=== PATIENT | male | born 1995 | race African-American/Black ===

== ENCOUNTER 2019-07-18 00:26 | Emergency (ER) | payer SELFPAY ==
[2019-07-18 01:49] LABS: Bilirubin Negative (Negative); Blood, Urine Negative (Negative); Clarity Clear (Clear); Glucose, Urine (Dipstick) Normal (Negative); Leukocyte Negative Leu/uL (Negative); Nitrite Negative (Negative); Protein, Urine (Dipstick) 20 mg/dL (Neg-Trace); Urobilinogen Normal mg/dL (Less than 2)
--- NOTE | 2019-07-18 10:13 | ULT ---
PRELIMINARY REPORT/[facility]/AFTER HOURS PROCEDURE SCROTUM ULTRASOUND: CLINICAL HISTORY: HX: Rt testicular pain. See notes on last image. Thanks. TECHNIQUE: Real-time ultrasound of the scrotum with color Doppler and image documentation. COMPARISON: None provided. FINDINGS: RIGHT TESTICLE: The right testicle measures about 4.3 x 2.1 x 2.7 cm. No mass. Normal Doppler flow. LEFT TESTICLE: The left testicle measures about 4.1 x 2.2 x 2.8 cm. No mass. Normal Doppler flow. EPIDIDYMIDES: Unremarkable. SCROTUM: There is a small bilateral hydrocele. IMPRESSION: Small bilateral hydrocele. ELECTRONICALLY SIGNED BY: Estella Wall MD Jul 18, 2019 2:33:03 AM [employer] This report is intended for review by the ordering physician only, in accordance of law. If you recei ve this report in error, please call [facility] at [phone]. FINAL REPORT EMERGENT AFTER HOURS SCROTAL ULTRASOUND INCLUDING COLOR AND SPECTRAL DOPPLER IMAGIN07/18/2019 1:46 a.m. Trace hydroceles bilaterally. No intratesticular mass. No evidence for testicular torsion. IMPRESSION: No acute process. No intratesticular mass or testicular torsion. This report is in agreement with the preliminary report. CODE QA POS: [facility] [place]
== END 2019-07-18 04:36 ==
LOC: ERS 00:26
DX: N43.3 Hydrocele, unspecified (principal); R59.0 Localized enlarged lymph nodes
CPT/HCPCS: 76870; 81003; 87086; 93976